=== PATIENT | male | born 1985 | race Two or more races ===

== ENCOUNTER → 2016-06-15 | Day surgery (SDC) | payer BC ==
[~2016-06-15] VITALS: Ht 180.3 cm; Wt 87.1 kg
[2016-06-15] VITALS (12 sets, daily range): BP systolic 117–134; BP diastolic 69–90
[~2016-06-15] MED LIST: Bacitracin 50000 Units Vial ONE; Bupivacaine w/Epi 0.25% 30ml Vial INJ ONE; DiphenhydrAMINE 50mg/ml Inj IVP PRN; Glycopyrrolate 0.2mg/ml 1ml Vial ONE; HYDROmorphone 1mg/ml Carpuject SUBQ PRN; Ketorolac 30mg Inj IV PRN; Ketorolac 30mg Inj ONE; LR 1000ml 1,000 ML IVLG SCH; LR 1000ml ONE; Meperidine 25mg/ml Inj IV PRN; Metoclopramide 10mg/2ml Inj IVP PRN; Midazolam 2mg/2ml Inj ONE; Morphine Sulfate 10mg/ml Inj ONE; NKM; Neostigmine 1mg/ml 10ml Inj ONE; Propofol 10mg/ml 20ml IV ONE; Succinylcholine 20mg/ml 10ml vial ONE; Tylenol #3 tab (300mg/30mg) ORAL PRN; Zemuron 50mg/5ml Inj IV ONE; fentaNYL 100 mcg/2 mL IV ONE
--- NOTE | 2016-06-15 07:21 | Pre-Procedure Note/Attestation ---
Pre-Procedure Note/Attestation Complete Prior to Procedure Planned Procedure: right Procedure Narrative: repair of right inguinal scrotal hernia Indications for Procedure Pre-Operative Diagnosis: right inguinal scrotal hernia Attestation I attest that I discussed the nature of the procedure; its benefits; risks and complications; and alternatives (and the risks and benefits of such alternatives ), prior to the procedure, with the patient (or the patient's legal sales representative wire rope). I attest that, if there was a reasonable possibility of needing a blood transfusion, the patient (or the patient's legal sales representative wire rope) was given the [facility] standardized written summary, pursuant to the Rikki Andrea Blood Safety Act ([place] Health and Safety Code # 1645, as amended). I attest that I re-evaluated the patient just prior to the surgery and that there has been no change in the patient's H&P, except as documented below: TAMEKA QUINTEROS Jun 15, 2016 07:21
--- NOTE | 2016-06-15 09:39 | Anethesia Preoperative Eval ---
Anesthesia Pre-op PMH/ROS General Date of Evaluation: Jun 15, 2016 Time of Evaluation: 08:52 Anesthesiologist: Valeria ASA Score: ASA 2 Mallampati Score Class I : Soft palate, uvula, fauces, pillars visible Class II: Soft palate, uvula, fauces visible Class III: Soft palate, base of uvula visible Class IV: Only hard plate visible Mallampati Classification: Class II Surgeon: Luis Fernando Diagnosis: R injuinal hernia Surgical Procedure: R injuinal hernia repair Anesthesia History: none Family History: no anesthesia problems Allergies: Coded Allergies: No Known Allergies (Unverified , 06/14/16) Medications: see eMAR Past Medical History Cardiovascular: Denies: CAD, HTN, [place], arrhythmia, other, valve dz Pulmonary: Denies: COPD, BRANNON, asthma, other Gastrointestinal/Genitourinary: Reports: GERD, Denies: CRI, ESRD, other Neurologic/Psychiatric: Denies: CVA, TIA, dementia, depression/anxiety, other Endocrine: Denies: DM, hypothyroidism, other, steroids HEENT: Denies: QAGAN TAYAGUNGIN (L), QAGAN TAYAGUNGIN (R), cataract (L), cataract (R), glaucoma, other Hematology/Immune: Denies: DVT, anemia, bleeding disorder, other Musculoskeletal/Integumentary: Denies: DDD, DJD, OA, RA, edema, other PMH Narrative: as above PSxH Narrative: Dental Sx Adenoids Anesthesia Pre-op Phys. Exam Physician Exam Last Vital Signs Date Time Temp Pulse Resp B/P Pulse Ox O2 Delivery O2 Flow Rate FiO2 06/15/16 07:26 98.0 82 18 123/69 98 Room Air Constitutional: NAD Neurologic: CN 2-12 intact Cardiovascular: RRR, no M/R/G Respiratory: CTA Gastrointestinal: S/NT/ND Airway Exam Mallampati Score: Class II MO: full Neck: flexible ROM: full Teeth: intact Dentures: no lower, no upper Anesthesia Pre-op A/P Labs See chart Studies Pre-op Studies: EKG - NSR Risk Assessment & Plan Assessment: ASA 2 Plan: GA with ETT Status Change Before Surgery: No Pre-Antibiotics Drug: Ancef 2 gr. Given Within 1 Hr of Incision: Yes Time Given: 09:18 ADILENE CEJA M.D. Jun 15, 2016 09:39
--- NOTE | 2016-06-15 10:08 | Brief Operative Note ---
Immediate Post Operative Note Operative Note Pre-op Diagnosis: right inguinal scrotal hernia Post-op Diagnosis: same as pre-op Surgeon: tree Anesthesiologist: lexie Anesthesia: general Specimen: yes Complications: none Condition: stable Estimated Blood Loss: minimal Drains: none Implant(s) used?: Yes - prolene mesh TAMEKA QUINTEROS Jun 15, 2016 10:08
--- NOTE | 2016-06-15 10:28 | Immediate Post-Op Evaluation ---
Immediate Post-Op Evalulation Immediate Post-Op Evalulation Procedure: R injuinal hernia repair Date of Evaluation: Jun 15, 2016 Time of Evaluation: 10:27 IV Fluids: 800 Blood Products: none Estimated Blood Loss: min Urinary Output: none Blood Pressure Systolic: 132 Blood Pressure Diastolic: 56 Pulse Rate: 78 Respiratory Rate: 20 O2 Sat by Pulse Oximetry: 99 Temperature (Fahrenheit): 98.4 Pain Score (1-10): 2 Nausea: No Vomiting: No Complications none Patient Status: awake, patent, extubated, none Hydration Status: adequate ADILENE CEJA M.D. Jun 15, 2016 10:28
[2016-06-15] MEDS: Hydromorphone 0.5mg/0.5ml inj IVP PRN ×2 (10:40→11:04)
[2016-06-15] MEDS: Midazolam 2mg/2ml Inj IVP PRN ×2 (10:54→11:10)
--- NOTE | 2016-06-15 12:13 | 48 Hour Post Anesthesia Eval ---
Post Anesthesia Evaluation Procedure: R injuinal hernia repair Date of Evaluation: Jun 15, 2016 Time of Evaluation: 12:12 Blood Pressure Systolic: 118 0: 74 Pulse Rate: 82 Respiratory Rate: 20 Temperature (Fahrenheit): 97.5 O2 Sat by Pulse Oximetry: 99 Airway: patent Nausea: No Vomiting: No Pain Intensity: 2 Hydration Status: adequate Cardiopulmonary Status: stable Mental Status/LOC: patient returned to baseline Follow-up Care/Observations: n/a Post-Anesthesia Complications: none Follow-up care needed: ready to discharge ADILENE CEJA M.D. Jun 15, 2016 12:13
--- NOTE | 2016-06-16 08:48 | Operative Note - Dictated ---
DATE OF OPERATION: 06/15/2016 SURGEON: Jason Gould M.D. MIG TIG WELDER: None. ANESTHESIOLOGIST: Wero Shaw M.D. ANESTHESIA: General. PREOPERATIVE DIAGNOSIS: Large right inguinal scrotal hernia. POSTOPERATIVE DIAGNOSIS: Large right inguinal scrotal hernia. OPERATION: Repair of large right inguinal scrotal hernia. FINDINGS AND INDICATIONS: The patient is a 31-year-old male with history of progressively enlarging right inguinal hernia extending down into the scrotum, with some tension and inability to reduce it. undergo repair of the hernia. At the time of the operation, at least half of its omentum that was stuck down into the hernia sac, which extended down to the top of the testicle into the scrotum. The procedure was done uneventful given the difficulty of the dissection. DESCRIPTION OF PROCEDURE: With the patient lying in the supine position on the operating table, under general anesthesia, with the entire lower abdominal and groin regions and genital regions prepped and draped in the usual sterile fashion with Betadine, after complete time-out, an oblique incision was carried out in the right lower quadrant extending into hockey-stick fashion down towards the scrotum. The subcutaneous tissues were divided, the external oblique aponeurosis was identified and opened in the direction of its fibers. The ilioinguinal nerve was then carefully identified and retracted medially and was intact. The cord was then isolated and skeletonized by opening up the external spermatic fascia, and the large contents of omentum within the hernia sac were then reduced back into the abdominal cavity bluntly, and the sac was then dissected free by blunt and sharp of the spermatic cord obtaining hemostasis with cautery and with Vicryl ties. The large sac was then ligated initially from the inside with a pursestring 2-0 Vicryl tie and then externally with 2-0 Vicryl [id number] stitch. The area was then irrigated, hemostasis was adequate, the pelvic floor was reinforced by approximating the shelving edge of the inguinal ligament to the combined aponeurosis of the internal oblique and transversus abdominis muscles using the mesh as an interface and secured in place. A slit was made on the lateral aspect of the mesh to allow the cord structures to go through and the Prolene suture was snugged and ligated recreating a nice snug internal ring. The area was irrigated. Hemostasis was adequate. The cord and the nerve were then replaced anatomically and the external oblique aponeurosis was closed with 3-0 Vicryl suture, subcutaneous tissues with 3-0 Vicryl suture, and the skin was closed with 4-0 Vicryl subcuticular sutures and Steri-Strips. Marcaine 0.5% with epinephrine 30 mL was injected for long-acting local anesthetic. The patient tolerated the procedure well. Estimated blood loss was less than 15 mL. Sponge and needle counts were correct. He went to the recovery room in stable condition. Jason Gould M.D. DR: MARIANA JOB#: [id number] CC:
== END | disposition home or self-care (01) ==
LOC: SUR 06:45
DX: K40.90 Unilateral inguinal hernia, without obstruction or gangrene, not specified as recurrent (principal); K21.9 Gastro-esophageal reflux disease without esophagitis; L98.9 Disorder of the skin and subcutaneous tissue, unspecified; E55.9 Vitamin D deficiency, unspecified
CPT/HCPCS: 49505; C1781; J0330; J0690; J1170; J1885; J2250; J2270; J2405; J2704; J2710; J3010; J7120; 94003; 94150